=== PATIENT | female | born 1970 | race Caucasian/White ===

== ENCOUNTER 2017-02-12 15:29 | Emergency (ER) | payer OTHER ==
[2017-02-12 15:36] VITALS: BMI 26.9
--- NOTE | 2017-02-12 15:52 | PDOC ---
History of Present Illness - General Chief Complaint: Allergic Reaction Stated Complaint: ALLERGIC REACTION Time Seen by Provider: 02/12/17 15:49 - History of Present Illness Initial Comments: 02/12/17 16:11 Ms. Sorto is a 46 yo female w/ pmh of HTN, DM, and migraines who presents complaining of difficulty swallowing/breathing, itchy hands, and facial eye swelling. She reports this started after she was eating some peanuts in the car earlier today. She has never had allergies to peanuts in the past but reports this feels exactly liker her shellfish allergies. The patient denies chest pain, headache and dizziness. Denies fever, chills, nausea, vomit, diarrhea and constipation. Denies dysuria, frequency, urgency and hematuria. Allergies: Shellfish Past History - Past Medical History Allergies/Adverse Reactions: Allergies Allergy/AdvReac Type Severity Reaction Status Date / Time shellfish derived Allergy ANAPHYLAXIS Verified 02/12/17 15:32 Home Medications: Ambulatory Orders NK [No Known Home Medication] 02/12/17 COPD: No Diabetes: Yes GI Disorders: Yes (gerd) - Surgical History Abdominal Surgery: Yes - Suicide/Smoking/Psychosocial Hx Smoking History: Never smoked Have you smoked in the past 12 months: No Information on smoking cessation initiated: No Hx Alcohol Use: No Drug/Substance Use Hx: No Substance Use Type: None Review of Systems - Review of Systems Comments:: 02/12/17 18:03 GENERAL/CONSTITUTIONAL: No fever or chills. No weakness. HEAD, EYES, EARS, NOSE AND THROAT: +Eye swelling and difficulty breathing - feels like her throat is closing off. Also difficulty swallowing. CARDIOVASCULAR: No chest pain or shortness of breath RESPIRATORY: No cough, wheezing, or hemoptysis. GASTROINTESTINAL: No nausea, vomiting, diarrhea or constipation. GENITOURINARY: No dysuria, frequency, or change in urination. MUSCULOSKELETAL: +Itchy palms reported. No joint or muscle swelling or pain. No neck or back pain. SKIN: No rash NEUROLOGIC: No headache, vertigo, loss of consciousness, or change in strength/ sensation. ENDOCRINE: No increased thirst. No abnormal weight change HEMATOLOGIC/LYMPHATIC: No anemia, easy bleeding, or history of blood clots. ALLERGIC/IMMUNOLOGIC: No hives or skin allergy. *Physical Exam - Vital Signs Last Vital Signs Temp Pulse Resp BP Pulse Ox 98.0 F 78 18 151/80 100 02/12/17 15:32 02/12/17 15:32 02/12/17 15:32 02/12/17 15:32 02/12/17 15:32 - Physical Exam Comments: 02/12/17 18:05 GENERAL: +Appears anxious in destress. Awake, alert, and fully oriented. HEAD: No signs of trauma, normocephalic, atraumatic EYES: +Eyes appear swollen with injected conjuntiva. ENT:+Clear Rhinorrhea observed NECK: Normal ROM, supple, no lymphadenopathy, JVD, or masses LUNGS: No distress, speaks full sentences, clear to auscultation bilaterally HEART: Regular rate and rhythm, normal S1 and S2, no murmurs, rubs or gallops, peripheral pulses normal and equal bilaterally. ABDOMEN: Soft, nontender, normoactive bowel sounds. No guarding, no rebound. No masses EXTREMITIES: Normal inspection, Normal range of motion, no edema. No clubbing or cyanosis. NEUROLOGICAL: Cranial nerves II through XII grossly intact. Normal speech, normal gait, no focal sensorimotor deficits SKIN: Warm, Dry, normal turgor, no rashes or lesions noted. Medical Decision Making - Medical Decision Making 02/12/17 18:06 Ms. Sorto presents with symptoms concerning for impending respiratory failure due to acute anaphylaxis. Given patient's reported throat closing, itchy hands, and swollen eyes anaphylaxis treatment of benadryl, epi, solumedrol, and pepcid given quickly upon presentation. Patient re-evaluated approximately 2 hours later and is currently reporting resolution of symptoms. 02/12/17 18:44 Patient will stay for observation until approximately 10pm. Currently resting comfortably, Requesting food. 02/12/17 18:51 Patient signed out to Dr. Jones for further care. *DC/Admit/Observation/Transfer Diagnosis at time of Disposition: Allergic reaction Qualifiers: Encounter type: initial encounter Qualified Code(s): T78.40XA - Allergy, unspecified, initial encounter - Referrals Referrals: Kelly Manning [Primary Care Provider] - - Patient Instructions - Post Discharge Activity
[2017-02-12] MEDS ORDERED: EPINEPHrine 1:1,000 1 MG/1 ML - 30ML VIAL (INJECTION) SQ ONE ×2 (15:57→15:59)
[2017-02-12] MEDS ORDERED: methylPREDNISolone NA SUCC 125 MG/2 ML VIAL ONE (15:57)
[2017-02-12] MEDS ORDERED: methylPREDNISolone NA SUCC 125 MG/2 ML VIAL IVPUSH ONE (15:57)
[2017-02-12] MEDS ORDERED: FAMOTIDINE 20 MG/50 ML IVPB 20 MG/50 ML MG IVPB ONE (15:58)
[2017-02-12] MEDS ORDERED: EPINEPHrine/PF 1 MG/1 ML (1:1,000) AMPULE ONE (15:58)
[2017-02-12] MEDS ORDERED: ONDANSETRON 4 MG/2 ML VIAL IVPUSH ONE (16:05)
[2017-02-12] MEDS ORDERED: ONDANSETRON 4 MG/2 ML VIAL ONE (16:06)
--- NOTE | 2017-02-12 16:07 | PDOC ---
Attending Attestation - HPI HPI: 02/12/17 16:26 The patient is a 46 year old female presenting with her , with a significant past medical history of HTN and DM, who presents to the emergency department with an allergic reaction. She reports that she was driving and eating peanuts when she began to have itching sensations that include shortness of breath, stuffy nose and throat itchiness. She reports that she had eaten smoked salmon prior to the incident, thus she is not sure what may have caused her reaction. She notes that she has eaten peanuts in the past without any kind of reactions. She denies any new medications, lotions, soaps or foods. The patient denies chest pain, headache and dizziness. Denies fever, chills, nausea, vomit, diarrhea and constipation. Denies dysuria, frequency, urgency and hematuria. Allergies: None Past surgical history: None reported Social history: No alcohol, tobacco or drug use reported - Physicial Exam PE: 02/12/17 16:26 GENERAL: Awake, alert, and fully oriented, in no acute distress HEAD: No signs of trauma, normocephalic, atraumatic EYES: PERRLA, EOMI, sclera anicteric, conjunctiva clear ENT: Auricles normal inspection, hearing grossly normal, nares patent, oropharynx clear without exudates. Moist mucosa NECK: Normal ROM, supple, no lymphadenopathy, JVD, or masses LUNGS: No distress, speaks full sentences, clear to auscultation bilaterally HEART: Regular rate and rhythm, normal S1 and S2, no murmurs, rubs or gallops, peripheral pulses normal and equal bilaterally. ABDOMEN: Soft, nontender, normoactive bowel sounds. No guarding, no rebound. No masses EXTREMITIES : Normal inspection, Normal range of motion, no edema. No clubbing or cyanosis. NEUROLOGICAL: Cranial nerves II through XII grossly intact. Normal speech, normal gait, no focal sensorimotor deficits SKIN: Warm, Dry, normal turgor, no rashes or lesions noted. <Sid Lowe - Last Filed: 02/12/17 16:26> - Resident Resident Name: Noel Lancaster - ED Attending Attestation I have performed the following: I have examined & evaluated the patient, The case was reviewed & discussed with the resident, I agree w/resident's findings & plan, Exceptions are as noted - Medical Decision Making 02/12/17 16:07 I, Dr. Daiana Mak, DO, attest that this document has been prepared under my direction and personally reviewed by me in its entirety. I further attest, that it accurately reflects all work, treatment, procedures and medical decision -making performed by me. 02/12/17 16:19 a/p: 46yo female with allergic reaction after eating peanuts today -will give benadryl, solumedrol, epi because of throat itching and felt it was swelling -will monitor in the ED for 6 hours -will give ivf hydration 02/12/17 22:00 pt feeling much better no stridor no wheezing speaking in full sentences no hives tolerating secretions stable for d/c to home will give epipen, pred, pepcid will give rn clinical quality for follow up <Daiana Mak - Last Filed: 02/12/17 22:01>
[2017-02-12] MEDS ORDERED: FAMOTIDINE IV 20 MG/12 ML VIAL IVPUSH ONE (16:11)
[2017-02-12] MEDS ORDERED: SODIUM CHLORIDE 1,000 ML IV STA (16:18)
[2017-02-12] MEDS ORDERED: FAMOTIDINE IV 20 MG/12 ML VIAL IVPUSH SCH (22:00)
--- NOTE | 2017-02-12 22:29 | PDOC ---
*Physical Exam - Vital Signs Last Vital Signs Temp Pulse Resp BP Pulse Ox 98.0 F 78 18 151/80 100 02/12/17 15:32 02/12/17 15:32 02/12/17 15:32 02/12/17 15:32 02/12/17 15:32 - Physical Exam General Appearance: Yes: Nourished, Appropriately Dressed Respiratory/Chest: positive: Lungs Clear, Normal Breath Sounds Cardiovascular: positive: Regular Rhythm, Regular Rate, S1, S2 Extremity: positive: Normal Inspection Integumentary: negative: Hives, Rash Neurologic: positive: Fully Oriented, Alert, Normal Mood/Affect ED Treatment Course - Medications Given in the ED: ED Medications Discontinued Medications Generic Name Dose Route Start Last Admin Trade Name Freq PRN Reason Stop Dose Admin Diphenhydramine HCl 25 mg 02/12/17 15:57 02/12/17 15:59 Benadryl Injection - IVPUSH 02/12/17 15:58 25 mg ONCE ONE Administration Epinephrine HCl 0.3 mcg 02/12/17 15:57 02/12/17 16:05 Epinephrine 1:1,000 - SQ 02/12/17 15:58 Not Given ONCE ONE Epinephrine HCl 300 mcg 02/12/17 15:59 02/12/17 15:58 Epinephrine 1:1,000 - SQ 02/12/17 16:00 300 mcg ONCE ONE Administration Famotidine 20 mg in 12 mls @ 144 mls/hr 02/12/17 16:11 02/12/17 16:00 Pepcid 20 Mg/12 Ml Push IVPUSH 02/12/17 16:15 144 mls/hr ONCE ONE Administration Sodium Chloride 1,000 mls @ 1,000 mls/hr 02/12/17 16:18 02/12/17 16:58 Normal Saline - IV 02/12/17 17:17 1,000 mls/hr ASDIR STA Administration Methylprednisolone Sodium Succinate 125 mg 02/12/17 15:57 02/12/17 16:00 Solu-Medrol - IVPUSH 02/12/17 15:58 125 mg ONCE ONE Administration Ondansetron HCl 4 mg 02/12/17 16:05 02/12/17 16:11 Zofran Injection IVPUSH 02/12/17 16:06 4 mg ONCE ONE Administration Medical Decision Making - Medical Decision Making 46yo woman who presents with allergic reaction after eating peanuts earlier today. Patient received Benadryl, Solumedrol, and Epinephrine. Patient was monitored in ED for 6 hours after receiving epi. She remained stable with no further symptoms. She is requesting to go home. VSS, no wheezing, stridor, and able to speak in full sentence without distress. Overall, patient is well- appearing and stable for discharge home. Patient given new epipen, 4 day course of steroids, and 5 days of Pepcid. Patient was referred to [facility] for further follow-up. Patient in agreement with plan. *DC/Admit/Observation/Transfer Diagnosis at time of Disposition: Allergic reaction Qualifiers: Encounter type: initial encounter Qualified Code(s): T78.40XA - Allergy, unspecified, initial encounter - Prescriptions Prescriptions: Epinephrine (Epi-Pen 0.3MG) [Epipen 0.3MG -] 0.3 mg IM ASDIR #2 pens Famotidine [Pepcid -] 20 mg PO DAILY #5 tablet Prednisone [Prednisone 50 MG TABLETS] 50 mg PO DAILY #4 tablet - Referrals Referrals: Irene Rincon MD [Staff Physician] - Kelly Manning [Primary Care Provider] - - Patient Instructions Printed Discharge Instructions: DI for Anaphylaxis Additional Instructions: You had an allergic reaction after eating peanuts and was treated with epinephrine. Please make an appointment with Dr. Rincon, an [facility], to confirm whether you are allergic to peanuts. You should also make an appointment with your primary care physician within the next few weeks. You are being prescribed an epi pen. Please carry it with you, and use as directed if you are having anaphylaxis. Take 1 tablet of Prednisone (steroid) every day for the next 4 days. Your first dose will be tomorrow. Take 1 tablet of Famotidine every day for the next 5 days. Your first dose will be tomorrow. Please return to the Emergency Department if you feel your symptoms have worsened, including lips or throat swelling, nausea, vomiting, difficulty breathing, skin reaction, or any new or concerning symptoms. - Post Discharge Activity
[2017-02-12 22:52] VITALS: BP 127/75; PULSE 83; TEMP 98.3
== END 2017-02-12 22:56 | disposition home or self-care (01) ==
LOC: JER 15:29
PROC: 3E033GC Introduction of Other Therapeutic Substance into Peripheral Vein, Percutaneous Approach (ICD-10-PCS; principal; 2017-02-12)
PROC: 3E0337Z Introduction of Electrolytic and Water Balance Substance into Peripheral Vein, Percutaneous Approach (ICD-10-PCS; 2017-02-12)
DX: T78.40XA Allergy, unspecified, initial encounter (principal)
CPT/HCPCS: 99283-25

== ENCOUNTER 2018-09-21 12:49 | Emergency (ER) | payer OTHER ==
[2018-09-21 12:53] VITALS: BP 145/73; PULSE 81; TEMP 97.2; BMI 22.6
[2018-09-21] MEDS ORDERED: ACETAMINOPHEN 500 MG TABLET (FP) PO ONE (13:06)
[2018-09-21] MEDS ORDERED: ACETAMINOPHEN 325 MG TABLET (FP) ONE (13:13)
--- NOTE | 2018-09-21 13:22 | PDOC ---
History of Present Illness - General Chief Complaint: Pain Stated Complaint: LT. HAND PAIN Time Seen by Provider: 09/21/18 13:01 History Source: Patient Exam Limitations: Clinical Condition - History of Present Illness Initial Comments: 09/21/18 13:36 Patient with history of stomach ulcer present with complaint of 3 weeks history of left wrist pain which has been persistent despite taking Tylenol and using brace brace. Patient reports she was seen by PCP over week ago for symptoms and was told she could not take NSAIDs because of stomach ulcer and oriented advice to use for spray per symptoms been worsening. Reported increased pain to thumb aspect of left wrist. Denies trauma or injury to her hand or wrist. Denies numbness or tingling sensation. Reported weakness and left thumb. Denies any other symptoms Timing/Duration: other (3 weeks) Past History - Past Medical History Allergies/Adverse Reactions: Allergies Allergy/AdvReac Type Severity Reaction Status Date / Time shellfish derived Allergy ANAPHYLAXIS Verified 09/23/17 15:14 Home Medications: Ambulatory Orders Ibuprofen [Motrin -] 600 mg PO TID PRN #21 tablet 09/23/17 Metformin HCl [Glucophage] 500 mg PO BID 09/23/17 Ondansetron [Zofran Odt -] 4 mg SL TID PRN #21 od.tablet 09/23/17 Diclofenac Sodium [Voltaren] 1 applic TP Q8H PRN #1 tube 09/21/18 Methylprednisolone [Medrol Dose Felice] 4 mg PO ASDIR #21 tablet 09/21/18 Asthma: Yes COPD: No Diabetes: Yes GI Disorders: Yes (gerd) - Surgical History Abdominal Surgery: Yes - Suicide/Smoking/Psychosocial Hx Smoking History: Never smoked Have you smoked in the past 12 months: No Hx Alcohol Use: No Drug/Substance Use Hx: No Substance Use Type: None Review of Systems - Review of Systems Able to Perform ROS?: Yes Is the patient limited [place] proficient: No Constitutional: Yes: Weakness (left thumb). No: Malaise HEENTM: No: Symptoms Reported Respiratory: No: Symptoms reported Cardiac (ROS): No: Symptoms Reported Musculoskeletal: Yes: Symptoms Reported, See HPI, Joint Pain (left wrist pain), Muscle Pain (left wrist emre on thumb side) Neurological: No: Numbness, Paresthesia All Other Systems: Reviewed and Negative *Physical Exam - Vital Signs Last Vital Signs Temp Pulse Resp BP Pulse Ox 97.2 F L 81 20 145/73 99 09/21/18 12:50 09/21/18 12:50 09/21/18 12:50 09/21/18 12:50 09/21/18 12:50 - Physical Exam Comments: 09/21/18 13:19 GENERAL: Well developed, well nourished. Awake and alert in mild acute distress. PULMONARY: No evidence of respiratory distress. MUSCULOSKELETAL : mild tenderness over dorsal aspect of left wrist with increased pain over the MCP of left thumb which is worse with medial deviation of left wrist. Mild swelling over dorsal aspect of left hand and wrist on the radial side. No bony deformities SKIN: Warm and dry. Normal capillary refill. NEUROLOGICAL: Alert, awake, appropriate. No motor deficits in the lower extremities. Gait is normal without ataxia. PSYCHIATRIC: Cooperative. Good eye contact. Appropriate mood and affect. General Appearance: Yes: Nourished, Appropriately Dressed, Mild Distress ED Treatment Course - RADIOLOGY Radiology Studies Ordered: Category Date Time Status WRIST W/HAND-LEFT* [RAD] Stat Radiology 09/21/18 13:06 Ordered Medical Decision Making - Medical Decision Making 09/21/18 13:37 Patient with history of stomach ulcer present with complaint of 3 weeks history of left wrist pain which has been persistent despite taking Tylenol and using brace brace. Patient reports she was seen by PCP over week ago for symptoms and was told she could not take NSAIDs because of stomach ulcer and oriented advice to use for spray per symptoms been worsening. Reported increased pain to thumb aspect of left wrist. Denies trauma or injury to her hand or wrist. Denies numbness or tingling sensation. Reported weakness and left thumb. Denies any other symptoms Exam significant for moderate tenderness over MCP joint of left thumb and radial aspect of left wrist with mild swelling over medial aspect of left wrist on dorsal aspect. Increased pain with medial deviation of left wrist. Symptoms likely de Quervain's syndrome. X-ray of left hand and wrist shows swelling over proximal MCPs otherwise normal x-ray. Patient be discharged home on Medrol Felice by mouth for anti-inflammatory effect and Voltaren gel with advised to continue hot compresses and left brace with orthopedics follow-up *DC/Admit/Observation/Transfer Diagnosis at time of Disposition: Tenosynovitis, de Quervain - Discharge Dispostion Disposition: HOME Condition at time of disposition: Stable Decision to Admit order: No - Prescriptions Prescriptions: Diclofenac Sodium [Voltaren] 1 applic TP Q8H PRN #1 tube PRN Reason: wrist pain Methylprednisolone [Medrol Dose Felice] 4 mg PO ASDIR #21 tablet - Referrals Referrals: Richard Ambrosio MD [Staff Physician] - - Patient Instructions Printed Discharge Instructions: DI for Tenosynovitis Additional Instructions: X-ray of the left hand and wrist shows no acute fracture or dislocation symptoms is likely from inflammation of the tendon of left thumb. Take prescribed medication as prescribed for pain. Keep using wrist brace. Follow-up with referred hand orthopedics - Post Discharge Activity
== END 2018-09-21 13:50 | disposition home or self-care (01) ==
LOC: JERFT 12:49
PROC: 2W3DX1Z Immobilization of Left Lower Arm using Splint (ICD-10-PCS; principal; 2018-09-21)
DX: M65.4 Radial styloid tenosynovitis [de Quervain] (principal); E11.9 Type 2 diabetes mellitus without complications; J45.909 Unspecified asthma, uncomplicated; K21.9 Gastro-esophageal reflux disease without esophagitis
CPT/HCPCS: 29126; 73110-TC-LT-FY; 73130-TC-LT-FY; 99281-25

== ENCOUNTER 2019-05-08 10:41 | Emergency (ER) | payer OTHER ==
[2019-05-08 10:47] VITALS: BP 138/83; PULSE 104; TEMP 99.8; BMI 19.5
--- NOTE | 2019-05-08 12:19 | PDOC ---
History of Present Illness - General Chief Complaint: Respiratory Stated Complaint: Cold Symptoms Time Seen by Provider: 05/08/19 11:16 History Source: Patient Exam Limitations: Clinical Condition - History of Present Illness Initial Comments: 05/08/19 12:37 Patient with no significant past medical history present with complaint of 24 hours history of nasal congestion, body aches, runny nose, nausea, diarrhea and dry cough. Patient reports taking Motrin 5 hours ago for fever. Denies recent travel or sick time. Denies any other symptoms. Denies mucus or bloody stool Is this a multiple visit Asthma Patient?: No Timing/Duration: 24 hours Past History - Past Medical History Allergies/Adverse Reactions: Allergies Allergy/AdvReac Type Severity Reaction Status Date / Time shellfish derived Allergy ANAPHYLAXIS Verified 05/08/19 10:47 Home Medications: Ambulatory Orders Ibuprofen [Motrin -] 600 mg PO TID PRN #21 tablet 09/23/17 Metformin HCl [Glucophage] 500 mg PO BID 09/23/17 Ondansetron [Zofran Odt -] 4 mg SL TID PRN #21 od.tablet 09/23/17 Diclofenac Sodium [Voltaren] 1 applic TP Q8H PRN #1 tube 09/21/18 Ipratropium Grant 2 spray NS BID PRN 5 Days #1 spray 05/08/19 Loperamide HCl [Loperamide] 2 mg PO Q8H PRN #12 capsule 05/08/19 Methylprednisolone [Medrol Dose Felice] 4 mg PO ASDIR #21 tablet 05/08/19 Oseltamivir Phosphate [Tamiflu -] 75 mg PO BID #10 capsule 05/08/19 Asthma: Yes COPD: No Diabetes: Yes GI Disorders: Yes (gerd) Other medical history: migraines - Surgical History Abdominal Surgery: Yes - Psycho Social/Smoking Cessation Hx Smoking History: Never smoked Have you smoked in the past 12 months: No Hx Alcohol Use: No Drug/Substance Use Hx: No Substance Use Type: None Review of Systems - Review of Systems Able to Perform ROS?: Yes Is the patient limited [place]ian proficient: No Constitutional: Yes: Chills, Fever, Malaise HEENTM: Yes: Symptoms Reported, See HPI, Nose Congestion. No: Eye Pain, Blurred Vision, Tearing, Recent change in vision, Double Vision, Cataracts, Ear Pain, Ocular Prothesis, Ear Discharge, Nose Pain, Tinnitus, Nose Bleeding, Hearing Loss, Throat Pain, Throat Swelling, Mouth Pain, Dental Problems, Difficulty Swa llowing, Mouth Swelling, Other Respiratory: Yes: Symptoms reported, See HPI, Cough. No: Orthopnea, Shortness of Breath, SOB with Exertion, SOB at Rest, Stridor, Wheezing, Productive cough, Hemoptysis, Other Cardiac (ROS): No: Symptoms Reported, See HPI, Chest Pain, Edema, Irregular Heart Rate, Lightheadedness, Palpitations, Syncope, Chest Tightness, Other ABD/GI: No: Symptoms Reported, See HPI, Constipated, Diarrhea, Nausea, Vomiting, Abdominal cramping : No: Symptoms Reported, Burning, Urgency Musculoskeletal: No: Symptoms Reported All Other Systems: Reviewed and Negative *Physical Exam - Vital Signs Last Vital Signs Temp Pulse Resp BP Pulse Ox 99.8 F H 104 H 18 138/83 99 05/08/19 10:44 05/08/19 10:44 05/08/19 10:44 05/08/19 10:44 05/08/19 10:44 - Physical Exam 05/08/19 12:19 GENERAL: Well developed, well nourished. Awake and alert. No acute distress. HEENT: Bilateral nasal congestion. Normocephalic, atraumatic. PERRLA, EOMI. No conjunctival pallor. Sclera are non-icteric. Moist mucous membranes. Oropharynx is clear. NECK: Supple. Full ROM. CARDIOVASCULAR: Regular rate and rhythm. No murmurs, rubs, or gallops. Distal pulses are 2+ and symmetric. PULMONARY: No evidence of respiratory distress. Lungs clear to auscultation bilaterally. No wheezing, rales or rhonchi. ABDOMINAL: Soft. Non-tender. Non-distended. No rebound or guarding. No organomegaly. Normoactive bowel sounds. MUSCULOSKELETAL Normal range of motion at all joints. SKIN: Warm and dry. Normal capillary refill. No rashes. No cyanosis NEUROLOGICAL: Alert, awake, appropriate. Gait is normal without ataxia. PSYCHIATRIC: Cooperative. Good eye contact. Appropriate mood General Appearance: Yes: Nourished, Appropriately Dressed. No: Apparent Distress Medical Decision Making - Medical Decision Making 05/08/19 12:38 Patient with no significant past medical history present with complaint of 24 hours history of nasal congestion, body aches, runny nose, nausea, diarrhea and dry cough. Patient reports taking Motrin 5 hours ago for fever. Denies recent travel or sick time. Denies any other symptoms. Denies mucus or bloody stool Clinical exam significant for low temp of 99.8 F otherwise unremarkable exam. Lungs clear auscultation bilateral. No abdominal tenderness. Normal cardio exam. Rapid flu negative. Patient symptoms likely viral URI with viral syndrome. Patient stable for discharge on Tessalon Perles. For cough, Atrovent nasal spray for nasal and loperamide for diarrhea with Tamiflu with advised to alternate between Tylenol Motrin as needed for fever and increase fluid intake with PCP follow-up Discharge - Discharge Information Problems reviewed: Yes Clinical Impression/Diagnosis: URI with cough and congestion, Gastroenteritis Condition: Stable Disposition: HOME - Admission No - Additional Discharge Information Prescriptions: Ipratropium Grant 2 spray NS BID PRN 5 Days #1 spray PRN Reason: nasal congestion Loperamide HCl [Loperamide] 2 mg PO Q8H PRN #12 capsule PRN Reason: diarrhea Methylprednisolone [Medrol Dose Felice] 4 mg PO ASDIR #21 tablet Oseltamivir Phosphate [Tamiflu -] 75 mg PO BID #10 capsule - Follow up/Referral Referrals: Jacques Martinez MD [Primary Care Provider] - - Patient Discharge Instructions Patient Printed Discharge Instructions: DI for Viral Upper Respiratory Infection -- Adult Additional Instructions: Your flu test is negative. Your symptoms likely caused by upper respiratory viral infection. Take prescribed medication as prescribed for cough and congestion and diarrhea. Increase fluid. Alternate between Tylenol Motrin as needed for fever. Follow-up with primary care - Post Discharge Activity
== END 2019-05-08 12:34 | disposition home or self-care (01) ==
LOC: JERFT 10:41
DX: J06.9 Acute upper respiratory infection, unspecified (principal); K52.9 Noninfective gastroenteritis and colitis, unspecified; R05 Cough; R09.89 Other specified symptoms and signs involving the circulatory and respiratory systems; Z91.013 Allergy to seafood
CPT/HCPCS: 87804; 99283-25

== ENCOUNTER 2019-11-29 15:46 | Emergency (ER) | payer OTHER ==
[2019-11-29] MEDS ORDERED: SODIUM CHLORIDE 1,000 ML IV STA (15:53)
[2019-11-29] MEDS ORDERED: ONDANSETRON 4 MG/2 ML VIAL IVPUSH ONE (15:53)
[2019-11-29] MEDS ORDERED: ACETAMINOPHEN 1000 MG/100 ML VIAL (NON FORMULARY) IVPB ONE (15:53)
--- NOTE | 2019-11-29 15:53 | PDOC ---
Rapid Medical Evaluation Time Seen by Provider: 11/29/19 15:51 Medical Evaluation: Allergies Allergy/AdvReac Type Severity Reaction Status Date / Time shellfish derived Allergy ANAPHYLAXIS Verified 05/08/19 10:47 11/29/19 15:51 I have performed a brief in-person evaluation of this patient. CC: epigastric pain, vomiting and headache x2 days PE: Epigastric tenderness. Neuro grossly normal. Orders: abdominal w/u Patient will proceed to ED for further evaluation. Discharge Disposition - Diagnosis Epigastric abdominal pain - Referrals - Patient Instructions - Post Discharge Activity
[2019-11-29 15:55] VITALS: TEMP 97.2; BMI 25.8
--- NOTE | 2019-11-29 16:04 | PDOC ---
History of Present Illness - General Chief Complaint: Blood Pressure Problem Stated Complaint: HYPERTENSION Time Seen by Provider: 11/29/19 15:51 History Source: Patient Exam Limitations: No Limitations - History of Present Illness Initial Comments: 11/29/19 16:05 49 y.o. F PMHx Asthma, Diabetes, Migraine. Presenting due to migraine and elevated BP. Patient states she had a migraine last night so she took her blood pressure which was in the 150's. She then decided to take 125mg losartan pill (her boyfriends). She was at the gynecologiast today for an ultrasound which subsequently found her blood pressure to be in the 160's so she was sent to the ED. She now endorses a a frontal headache, sensitivity to light, SOB, nausea and abdominal pain located in the middle of the abdomen non radiating at a 5/10 intensity. PCP: PMHx: Asthma, Diabetes, Migraine PSHx: Meds: Metformin 1000mg Allergies: Shellfish 11/29/19 16:40 Past History - Medical History Allergies/Adverse Reactions: Allergies Allergy/AdvReac Type Severity Reaction Status Date / Time shellfish derived Allergy ANAPHYLAXIS Verified 11/29/19 15:55 Home Medications: Ambulatory Orders Ibuprofen [Motrin -] 600 mg PO TID PRN #21 tablet 09/23/17 Metformin HCl [Glucophage] 500 mg PO BID 09/23/17 Ondansetron [Zofran Odt -] 4 mg SL TID PRN #21 od.tablet 09/23/17 Diclofenac Sodium [Voltaren] 1 applic TP Q8H PRN #1 tube 09/21/18 Ipratropium [place] 2 spray NS BID PRN 5 Days #1 spray 05/08/19 Loperamide HCl [Loperamide] 2 mg PO Q8H PRN #12 capsule 05/08/19 Methylprednisolone [Medrol Dose Felice] 4 mg PO ASDIR #21 tablet 05/08/19 Oseltamivir Phosphate [Tamiflu -] 75 mg PO BID #10 capsule 05/08/19 Asthma: Yes COPD: No Diabetes: Yes GI Disorders: Yes (gerd) - Surgical History Abdominal Surgery: Yes - Reproductive History Is Patient Now?: No - Psycho-Social/Smoking History Smoking History: Never smoked Have you smoked in the past 12 months: No Information on smoking cessation initiated: No - Substance Abuse Hx (Audit-C & DAST Scrn) How often the patient has a drink containing alcohol: Never Score: In Men: 4 or > Positive; In Women: 3 or > Positive: 0 Screen Result (Pos requires Nsg. Audit-10AR): Negative In the last yr the pt used illegal drug/Rx for NonMed reason: No Score: Yes response is considered Positive: 0 Screen Result (Positive result requires Nsg. DAST-10): Negative Review of Systems - Review of Systems Able to Perform ROS?: Yes Is the patient limited [place] proficient: No Constitutional: No: Chills, Fever HEENTM: No: Blurred Vision, Double Vision Respiratory: Yes: SOB with Exertion. No: Cough, Stridor, Wheezing Cardiac (ROS): No: Chest Pain, Lightheadedness, Palpitations, Syncope ABD/GI: Yes: Constipated, Nausea. No: Diarrhea, Vomiting : No: Burning, Dysuria Musculoskeletal: No: Back Pain, Muscle Weakness Integumentary: No: Bruising, Flushing, Rash Neurological: Yes: Headache, Dizziness. No: Numbness, Tingling Hematologic/Lymphatic: No: Easy Bleeding, Easy Bruising *Physical Exam - Vital Signs Last Vital Signs Temp Pulse Resp BP Pulse Ox 97.2 F L 67 17 150/79 100 11/29/19 15:52 11/29/19 15:52 11/29/19 15:52 11/29/19 15:52 11/29/19 15:52 - Physical Exam General Appearance: Yes: Nourished, Appropriately Dressed. No: Apparent Distress Respiratory/Chest: positive: Lungs Clear, Normal Breath Sounds. negative: Chest Tender, Respiratory Distress, Accessory Muscle Use, Crackles, Rales, Rhonchi, Stridor, Wheezing Cardiovascular: positive: Regular Rhythm, Regular Rate. negative: Edema, JVD, Murmur Gastrointestinal/Abdominal: positive: Normal Bowel Sounds, Tender (Midepigastric tenderness), Flat, Soft, Tenderness (Midepigastric). negative: Organomegaly, Protuberent, Distended, Guarding, Rebound Musculoskeletal: positive: Normal Inspection. negative: CVA Tenderness Extremity: positive: Normal Inspection. negative: Tender, Swelling, Calf Tenderness Integumentary: positive: Normal Color, Dry, Warm Neurologic: positive: Fully Oriented, Alert, Normal Mood/Affect, Normal Response ED Treatment Course - LABORATORY CBC & Chemistry Diagram: 11/29/19 16:30 11/29/19 16:30 Medical Decision Making - Medical Decision Making 11/29/19 16:09 49 y.o. F PMHx Asthma, Diabetes, Migraine. Presenting due to migraine and elevated BP. DDx: Migraine, HTN, tension headache Labs: WBC 10.8, Na 132, trops <0.02 11/29/19 16:41 - BP 113/57 pulse 67 - Given reglan 10mg and 25mg IV benadryl Dispo: d/c home 11/29/19 18:18 Discharge - Discharge Information Problems reviewed: Yes Clinical Impression/Diagnosis: Epigastric abdominal pain Migraine Qualifiers: Migraine type: unspecified Status migrainosus presence: without status migrainosus Intractability: not intractable Qualified Code(s): G43.909 - Leighton muniz, unspecified, not intractable, without status migrainosus Condition: Improved - Admission No - Follow up/Referral - Patient Discharge Instructions Patient Printed Discharge Instructions: Migraine -- Adult, DI for Migraine Additional Instructions: You were seen in the emergency department for abdominal pain, elevated blood pressure and migraine. You received medications to treat your migraine Please follow up with your primary care physician and ]regarding your visit to the emergency department. If you experience profound headache, vision loss, weakness or numbness in the arms or legs, abdominal pain please return to the emergency department or call 911. - Post Discharge Activity
[2019-11-29] MEDS ORDERED: ACETAMINOPHEN INJECTION 100 ML IVPB ONE (16:12)
[2019-11-29 16:43] LABS: BASO % 0.7 % (0-2.0); EOS % 1.7 % (0-4.5); HEMATOCRIT 39.2 % (32.4-45.2); HEMOGLOBIN 12.7 GM/dL (10.7-15.3); LYMPH % 24.7 % (8-40); MCH 24.4 pg (25.7-33.7); MCHC 32.5 g/dl (32.0-36.0); MEAN CELL VOLUME 75.2 fl (80-96); MEAN PLT VOLUME 7.8 fl (7.5-11.1); MONO % 9.2 % (3.8-10.2); NEUT % 63.7 % (42.8-82.8); PLATELET COUNT 483 K/MM3 (134-434); RBC 5.22 M/mm3 (3.60-5.2); RDW 20.8 % (11.6-15.6); WHITE BLOOD COUNT 10.8 K/mm3 (4.0-10.0)
[2019-11-29] MEDS ORDERED: METOCLOPRAMIDE HCL INJECTION 10 MG/2 ML VIAL IVPUSH ONE (17:08)
[2019-11-29] MEDS ORDERED: METOCLOPRAMIDE HCL INJECTION 10 MG/2 ML VIAL ONE (17:09)
[2019-11-29 17:10] LABS: ALBUMIN 3.9 g/dl (3.4-5.0); ALK PHOS 124 U/L (45-117); ANION GAP 9 MMOL/L (8-16); BILIRUBIN,TOTAL 0.4 mg/dL (0.2-1); CALCIUM 10.2 mg/dL (8.5-10.1); CHLORIDE 95 mmol/L (98-107); CO2 28 mmol/L (21-32); CREATININE 0.8 mg/dL (0.55-1.3); GLUCOSE,RANDOM 187 mg/dL (74-106); LIPASE 228 U/L (73-393); POTASSIUM 3.8 mmol/L (3.5-5.1); SGOT/AST 8 U/L (15-37); SGPT/ALT 20 U/L (13-61); SODIUM 132 mmol/L (136-145); TOT PROT 8.3 g/dl (6.4-8.2)
--- NOTE | 2019-11-29 17:46 | PDOC ---
Documentation entered by Rashard De La Cruz SCRIBE, acting as scribe for Marjorie Sandoval MD. Marjorie Sandoval MD: This documentation has been prepared by the biancaibe, Rashard Brown SCRIBE, under my direction and personally reviewed by me in its entirety. I confirm that the documentation accurately reflects all work, treatment, procedures, and medical decision making performed by me. 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 The patient notes a frontal headache, photophobia, and nausea that began yesterday. She notes taking her blood pressure yesterday and today and found it to be high, causing her to take 125mg of her boyfriends losartan. The patient took dramamine which improved her nausea and excedrin for her migraine. She endorses her headaches sometimes go away on their own, but if they last for a few hours she takes excedrin for relief. She reports following with a neurologist but does not like the side effects of medications, so she stopped seeing her physician. The patient notes this is typical presentation of a migraine and five previous episodes of hypertension that are associated with her severe migraines. The patient denies chest/abdominal/back pain, cough, and shortness of breath. Denies fever, chills, vomiting, and/or any GI symptoms. Denies any symptoms. Denies any other symptoms. Allergies: shellfish derived Past surgical history: None reported Social history: No alcohol, tobacco or drug use reported PCP: - Physicial Exam PE: 11/29/19 17:14 GENERAL: Well developed, well nourished. Awake and alert. No acute distress. HEENT: Normocephalic, atraumatic. PERRLA, EOMI. No conjunctival pallor. Sclera are non- icteric. Moist mucous membranes. Oropharynx is clear. NECK: Supple. Full ROM. No JVD. Carotid pulses 2+ and symmetric, without bruits. No thyromegaly. No lymphadenopathy. CARDIOVASCULAR: Regular rate and rhythm. No murmurs, rubs, or gallops. Distal pulses are 2+ and symmetric. PULMONARY: No evidence of respiratory distress. Lungs clear to auscultation bilaterally. No wheezing, rales or rhonchi. ABDOMINAL: Soft. Non-tender. Non-distended. No rebound or guarding. No organomegaly. Normoactive bowel sounds. MUSCULOSKELETAL: Normal range of motion at all joints. No bony deformities or tenderness. No CVA tenderness. EXTREMITIES: No cyanosis. No clubbing. No edema. No calf tenderness. SKIN: Warm and dry. Normal capillary refill. No rashes. No jaundice. NEUROLOGICAL: Alert, awake, appropriate. Cranial nerves 2-12 intact. No deficits to light touch and temperature in face, upper extremities and lower extremities. No motor deficits in the in face, upper extremities and lower extremities. Normoreflexic in the upper and lower extremities. Normal speech. Toes are down-going bilaterally. Gait is normal without ataxia. PSYCHIATRIC: Cooperative. Good eye contact. Appropriate mood and affect. - Medical Decision Making 11/29/19 17:45 pt given reglan and Benadryl for her migraine,no focal neuro deficits 11/29/19 18:17 repeat [id number] 11/29/19 18:58 imp: migraine ,resolved plan d/c home Discharge - Discharge Information Problems reviewed: Yes Clinical Impression/Diagnosis: Epigastric abdominal pain Migraine Qualifiers: Migraine type: unspecified Status migrainosus presence: without status migrainosus Intractability: not intractable Qualified Code(s): G43.909 - Migraine, unspecified, not intractable, without status migrainosus Condition: Improved Disposition: HOME - Follow up/Referral Referrals: Jacques Martinez MD [Primary Care Provider] - - Patient Discharge Instructions Patient Printed Discharge Instructions: Migraine -- Adult, DI for Migraine Additional Instructions: You were seen in the emergency department for abdominal pain, elevated blood pressure and migraine. You received medications to treat your migraine Please follow up with your primary care physician and ]regarding your visit to the emergency department. If you experience profound headache, vision loss, weakness or numbness in the arms or legs, abdominal pain please return to the emergency department or call 911. - Post Discharge Activity
[2019-11-29 19:09] VITALS: BP 113/57; PULSE 82
== END 2019-11-29 19:00 | disposition home or self-care (01) ==
LOC: JER 15:46
PROC: 3E0333Z Introduction of Anti-inflammatory into Peripheral Vein, Percutaneous Approach (ICD-10-PCS; principal; 2019-11-29)
PROC: 3E033GC Introduction of Other Therapeutic Substance into Peripheral Vein, Percutaneous Approach (ICD-10-PCS; 2019-11-29)
PROC: 3E0337Z Introduction of Electrolytic and Water Balance Substance into Peripheral Vein, Percutaneous Approach (ICD-10-PCS; 2019-11-29)
DX: R10.13 Epigastric pain (principal); G43.909 Migraine, unspecified, not intractable, without status migrainosus
CPT/HCPCS: 36415; 80053; 82550; 83690; 84484; 85025; 96361; 96374; 96375; 99284-25; J0131

== ENCOUNTER 2021-04-22 11:39 | Emergency (ER) | payer OTHER ==
[2021-04-22 12:07] VITALS: BP 138/72; PULSE 71; TEMP 97.7; BMI 25.8
== END 2021-04-22 13:46 | disposition home or self-care (01) ==
LOC: JER 11:39
DX: J20.9 Acute bronchitis, unspecified (principal)
CPT/HCPCS: 71046-TC-FY; 93005; 93010; 99284-25

== ENCOUNTER 2021-07-09 09:22 | Emergency (ER) | payer OTHER ==
[2021-07-09 09:32] VITALS: BP 138/60; TEMP 98.3; BMI 25.2
[2021-07-09] MEDS ORDERED: DIPHTH,PERTUSS(ACELL),TET 0.5 ML DISP.SYRIN IM ONE (10:02)
[2021-07-09] MEDS ORDERED: IBUPROFEN 600 MG TABLET (FP) PO ONE (10:03)
[2021-07-09 10:16] VITALS: PULSE 88
== END 2021-07-09 10:34 | disposition home or self-care (01) ==
LOC: JERFT 09:22
PROC: 3E0234Z Introduction of Serum, Toxoid and Vaccine into Muscle, Percutaneous Approach (ICD-10-PCS; principal; 2021-07-09)
DX: S91.332A Puncture wound without foreign body, left foot, initial encounter (principal); W45.8XXA Other foreign body or object entering through skin, initial encounter
CPT/HCPCS: 90471; 90715; 99283-25

== ENCOUNTER 2022-01-07 22:24 | Emergency (ER) | payer OTHER ==
[2022-01-07 22:55] VITALS: BP 118/73; PULSE 74; RESP 16; TEMP 98.1; BMI 25.8
[2022-01-07] MEDS ORDERED: KETOROLAC TROMETHAMINE 30 MG/1 ML VIAL IVPUSH ONE (23:17)
[2022-01-07] MEDS ORDERED: SODIUM CHLORIDE 0.9% 500 ML INFUS.BAG IV ONE (23:17)
[2022-01-07] MEDS ORDERED: ACETAMINOPHEN/CAFFEINE/BUTALBITAL 1 TAB PO ONE (23:17)
[2022-01-07] MEDS ORDERED: METOCLOPRAMIDE HCL INJECTION 10 MG/2 ML VIAL IVPUSH ONE (23:17)
[2022-01-07] MEDS ORDERED: METOCLOPRAMIDE HCL INJECTION 10 MG/2 ML VIAL ONE (23:56)
[2022-01-07] MEDS ORDERED: ACETAMINOPHEN/CAFFEINE/BUTALBITAL 1 TAB ONE (23:56)
[2022-01-08 00:24] LABS: BASO % 0.5 % (0-2.0); HEMATOCRIT 40.5 % (32.4-45.2); HEMOGLOBIN 13.6 GM/dL (10.7-15.3); LYMPH % 35.1 % (8-40); MCH 27.6 pg (25.7-33.7); MCHC 33.5 g/dl (32.0-36.0); MEAN CELL VOLUME 82.6 fl (80-96); MEAN PLT VOLUME 7.2 fl (7.5-11.1); MONO % 10.5 % (3.8-10.2); NEUT % 51.9 % (42.8-82.8); PLATELET COUNT 475 10^3/uL (134-434); RBC 4.91 M/mm3 (3.60-5.2); RDW 15.7 % (11.6-15.6); WHITE BLOOD COUNT 8.1 K/mm3 (4.0-10.0)
[2022-01-08 00:54] LABS: ALBUMIN 3.9 g/dl (3.4-5.0); BLOOD UREA NITROGEN 9.5 mg/dL (7-18); CALCIUM 9.4 mg/dL (8.5-10.1)
[2022-01-08 00:57] LABS: CREATININE 0.7 mg/dL (0.55-1.3)
[2022-01-08 00:59] LABS: BILIRUBIN,TOTAL 0.2 mg/dL (0.2-1); TOT PROT 7.7 g/dl (6.4-8.2)
== END 2022-01-08 02:03 | disposition home or self-care (01) ==
LOC: JER 22:24
PROC: 3E033GC Introduction of Other Therapeutic Substance into Peripheral Vein, Percutaneous Approach (ICD-10-PCS; principal; 2022-01-07)
DX: G43.909 Migraine, unspecified, not intractable, without status migrainosus (principal)
CPT/HCPCS: 0241U-QW; 36415; 70450-TC; 71046-TC-FY; 80053; 84703; 85025; 99285-25